=== PATIENT | male | born 1955 | race Asian ===

== ENCOUNTER 2017-05-27 09:38 | Emergency (ER) | payer MEDICAID | END 2017-05-27 09:52 | disposition EXP | LOC: ED 09:38 | DX: I46.9 Cardiac arrest, cause unspecified (principal); E11.9 Type 2 diabetes mellitus without complications; I10 Essential (primary) hypertension; E78.00 Pure hypercholesterolemia, unspecified | CPT/HCPCS: 82962; J7030; P9016 ==